=== PATIENT | female | born 1960 | race Caucasian/White ===

== ENCOUNTER 2018-09-09 14:46 | Emergency (ER) | payer BC ==
[~2018-09-09] VITALS: Ht 160 cm; Wt 85.3 kg
[2018-09-09 14:46] VITALS: BP 124/78
[2018-09-09] MEDS ORDERED: ACETAMINOPHEN ES 500 MG TABLET PO ONE (16:30)
[2018-09-09] MEDS ORDERED: ACETAMINOPHEN ES 500 MG TABLET ONE (16:38)
== END 2018-09-09 17:02 | disposition home or self-care (01) ==
LOC: ER 14:49
DX: S92.312A Displaced fracture of first metatarsal bone, left foot, initial encounter for closed fracture (principal); Z60.2 Problems related to living alone; W22.8XXA Striking against or struck by other objects, initial encounter; Y93.89 Activity, other specified; Y92.89 Other specified places as the place of occurrence of the external cause; Y99.8 Other external cause status
CPT/HCPCS: 29515; 73630; 99283; A4606